=== PATIENT | male | born 1945 | race Asian ===

== ENCOUNTER 2021-09-15 23:08 | Inpatient (IN) | payer MEDICARE, MEDICAID ==
[~2021-09-15] VITALS: Ht 170.2 cm; Wt 60.4 kg
[2021-09-15] MEDS ORDERED: MIDAZOLAM HCL 100 MG in SODIUM CHLORIDE 0.9% 100 ML IV PRN (23:15)
[2021-09-15] MEDS ORDERED: SUCCINYLCHOLINE CHLORIDE 200MG/10ML IV ONE (23:15)
[2021-09-15] MEDS ORDERED: ETOMIDATE 2MG/ML 10ML VIAL IV ONE (23:15)
[2021-09-15] MEDS ORDERED: FENTANYL CITRATE 2,500 MCG in SODIUM CHLORIDE 0.9% 200 ML IV PRN (23:30)
[2021-09-15 23:47] LABS: BG BASE EXCESS -3.4 mmol/L (-2.0-2.0); BG CARBOXYHEMOGLOBIN 0.6 % (0.5-1.5); BG DEOXYHEMOGLOBIN 9.8 % (0.0-5.0); BG FRACTION INSPIRED OXYGEN 50; BG HCO3 ACT 20.5 mmol/L (22.0-26.0); BG METHEMOGLOBIN 0.3 % (0.0-1.5); BG OXYGEN SATURATION 90.1 % (92.0-98.5); BG OXYHEMOGLOBIN 89.3 % (94.0-97.0); BG PCO2 33.6 mmHg (35.0-45.0); BG PH 7.404 (7.350-7.450); BG PO2 58.2 mmHg (75.0-100.0); BG SAMPLE SITE LEFT BRACHIAL; BG VENT MODE VENT - AC
[2021-09-16] VITALS (76 sets, daily range): BP systolic 69–128; BP diastolic 40–97
[2021-09-16 00:06] LABS: CHLORIDE 117 mEq/L (98-107)
[2021-09-16 00:10] LABS: BASOPHILS % 0.4 % (0.0-2.0); HEMATOCRIT. 41.5 % (42.0-52.0); HEMOGLOBIN. 13.4 g/dL (14.0-18.0); LYMPHOCYTES % 15.6 % (20.0-50.0); MEAN CORPUSCULAR HEMOGLOBIN 29.3 pg (28.0-32.0); MEAN CORPUSCULAR VOLUME 90.9 fL (80.0-94.0); MEAN PLATELET VOLUME 8.2 fl (7.4-10.4); MONOCYTES % 4.5 % (2.0-8.0); NEUTROPHILS % 79.5 % (40.0-76.0); PLATELET 252 x1000/uL (130-400); RED BLOOD CELL COUNT 4.57 mill/uL (4.7-6.1); RED CELL DISTRIBUTION WIDTH 18.1 % (11.6-14.6)
[2021-09-16 00:23] LABS: CLARITY URINE CLOUDY (CLEAR); COLOR URINE DARK YELLOW (YELLOW); KETONES URINE NEGATIVE (NEGATIVE); LEUKOCYTE ESTERASE URINE TRACE (NEGATIVE); NITRITE URINE NEGATIVE (NEGATIVE); OCCULT BLOOD URINE 1+ (NEGATIVE); PH URINE 5.5 (4.5-8.0); PROTEIN URINE 2+ (NEGATIVE)
[2021-09-16] MEDS ORDERED: SODIUM CHLORIDE 0.9% 1,000 ML IV ONE (01:00)
[2021-09-16] MEDS ORDERED: CEFTRIAXONE 1 G PREMIX 50 ML IV ONE (01:30)
[2021-09-16] MEDS ORDERED: NOREPINEPHRINE 8MG/250ML PMX 250 ML IV ONE (01:45)
[2021-09-16] MEDS ORDERED: IPRATROPIUM/ALBUTEROL 0.5-3(2.5)MG/3ML NEB NEB PRN (02:15)
[2021-09-16] MEDS ORDERED: POTASSIUM CHLORIDE INJ 40 MEQ in DEXT 5% WATER 250 ML IV NR (02:15)
[2021-09-16] MEDS ORDERED: BLOOD SUGAR DIAGNOSTIC STRIP TEST SCH (02:15)
[2021-09-16] MEDS ORDERED: DEXTROSE 50% WATER 50ML SYRINGE IV PRN (02:15)
[2021-09-16] MEDS ORDERED: DIPHENHYDRAMINE 50MG/ML VIAL IV PRN (02:15)
[2021-09-16] MEDS ORDERED: ONDANSETRON HCL 4MG/2ML INJ IV PRN (02:15)
[2021-09-16] MEDS: DEXT 5%/0.45% NACL 1000ML 1,000 ML IV SCH ×2 (03:41→18:33)
[2021-09-16] MEDS: BLOOD SUGAR DIAGNOSTIC STRIP TEST SCH ×3 (06:28→18:21)
[2021-09-16] MEDS: INSULIN LISPRO 100 UNITS/ML SUBCUT SCH ×3 (06:30→18:33)
[2021-09-16] MEDS ORDERED: INSULIN LISPRO 100 UNITS/ML SUBCUT SCH (07:00)
[2021-09-16] MEDS: FENTANYL CITRATE/PF 2,500 MCG in SODIUM CHLORIDE 0.9% 200 ML IV PRN (07:34)
[2021-09-16 08:10] LABS: *AMPHETAMINES SCREEN URINE NEGATIVE (NEGATIVE); *BARBITURATES SCREEN URINE NEGATIVE (NEGATIVE); *BENZODIAZEPINES SCREEN URINE PRESUMTIVE POSITIVE (NEGATIVE); *COCAINE SCREEN URINE NEGATIVE (NEGATIVE)
[2021-09-16 08:11] LABS: METHADONE URINE SCREEN NEGATIVE (NEGATIVE); OPIATES URINE SCREEN NEGATIVE (NEGATIVE); PHENCYCLIDINE URINE SCREEN NEGATIVE (NEGATIVE)
[2021-09-16 08:12] LABS: CANNABINOID URINE SCREEN NEGATIVE (NEGATIVE)
[2021-09-16 08:57] LABS: BG CARBOXYHEMOGLOBIN 0.3 % (0.5-1.5); BG DEOXYHEMOGLOBIN 4.9 % (0.0-5.0); BG FRACTION INSPIRED OXYGEN 70; BG HCO3 ACT 23.2 mmol/L (22.0-26.0); BG METHEMOGLOBIN 0.2 % (0.0-1.5); BG OXYGEN SATURATION 95.1 % (92.0-98.5); BG OXYHEMOGLOBIN 94.6 % (94.0-97.0); BG PCO2 41.4 mmHg (35.0-45.0); BG PH 7.367 (7.350-7.450); BG PO2 82.6 mmHg (75.0-100.0); BG SAMPLE SITE RIGHT BRACHIAL; BG TOTAL HEMOGLOBIN 12.5 g/dL (12.0-18.0); BG TOTAL RESPIRATORY RATE 14 b/min; BG VENT MODE VENT - AC
[2021-09-16] MEDS: PANTOPRAZOLE SODIUM 40 MG/VIAL IV SCH (09:30)
[2021-09-16] MEDS ORDERED: MIDAZOLAM HCL 100 MG in SODIUM CHLORIDE 0.9% 80 ML IV PRN (09:30)
[2021-09-16] MEDS: ENOXAPARIN 30MG/0.3ML SYR SUBCUT SCH (09:30)
[2021-09-16] MEDS ORDERED: ETOMIDATE 2MG/ML 10ML VIAL IV ONE (09:50)
[2021-09-16] MEDS ORDERED: SUCCINYLCHOLINE CHLORIDE 200MG/10ML IV ONE (09:50)
[2021-09-16] MEDS ORDERED: IPRATROPIUM/ALBUTEROL 0.5-3(2.5)MG/3ML NEB HHN PRN (10:45)
[2021-09-16] MEDS: PIPERACILLIN/TAZOBACTAM 3.375 G in DEXTROSE 5% WATER 50 ML IV SCH ×2 (12:38→22:15)
[2021-09-16] MEDS: NOREPINEPHRINE 8 MG in DEXT 5% WATER 242 ML IV PRN ×2 (12:39→22:25)
[2021-09-16] MEDS: IPRATROPIUM/ALBUTEROL 0.5-3(2.5)MG/3ML NEB HHN SCH ×2 (14:11→20:49)
[2021-09-16] MEDS ORDERED: METO-396 PO (18:04)
[2021-09-16] MEDS ORDERED: ICOS0.5C MT (18:04)
[2021-09-16] MEDS ORDERED: AMIO100T4 MT (18:04)
[2021-09-16] MEDS ORDERED: VITA1CAP MT (18:04)
[2021-09-17] VITALS (97 sets, daily range): BP systolic 56–166; BP diastolic 34–113
[2021-09-17] MEDS ORDERED: SODIUM CHLORIDE 0.9% 1,000 ML IV ONE (01:30)
[2021-09-17] MEDS: INSULIN LISPRO 100 UNITS/ML SUBCUT SCH ×4 (01:40→17:46)
[2021-09-17] MEDS: PHENYLEPHRINE 100 MG in DEXT 5% WATER 240 ML IV PRN ×2 (02:05→19:56)
[2021-09-17] MEDS: IPRATROPIUM/ALBUTEROL 0.5-3(2.5)MG/3ML NEB HHN SCH ×4 (02:35→21:30)
[2021-09-17] MEDS ORDERED: LORAZEPAM 2MG/ML CPJ IV PRN (04:45)
[2021-09-17] MEDS: DEXT 5%/0.45% NACL 1000ML 1,000 ML IV SCH (05:52)
[2021-09-17] MEDS ORDERED: LEVETIRACETAM 500 MG in SODIUM CHLORIDE 0.9% 100 ML IV SCH (06:00)
[2021-09-17] MEDS: BLOOD SUGAR DIAGNOSTIC STRIP TEST SCH ×4 (06:01→17:47)
[2021-09-17] MEDS: PIPERACILLIN/TAZOBACTAM 3.375 G in DEXTROSE 5% WATER 50 ML IV SCH ×3 (06:01→22:46)
[2021-09-17] MEDS: LEVETIRACETAM 500MG PREMIX 100 ML IV SCH ×2 (06:04→17:55)
[2021-09-17] MEDS: ENOXAPARIN 30MG/0.3ML SYR SUBCUT SCH (08:32)
[2021-09-17] MEDS: PANTOPRAZOLE SODIUM 40 MG/VIAL IV SCH (08:32)
[2021-09-17 09:35] LABS: BG BASE EXCESS -4.4 mmol/L (-2.0-2.0); BG CARBOXYHEMOGLOBIN 0.3 % (0.5-1.5); BG DEOXYHEMOGLOBIN 1.2 % (0.0-5.0); BG FRACTION INSPIRED OXYGEN 60; BG HCO3 ACT 21.2 mmol/L (22.0-26.0); BG METHEMOGLOBIN 0.2 % (0.0-1.5); BG OXYGEN SATURATION 98.8 % (92.0-98.5); BG OXYHEMOGLOBIN 98.3 % (94.0-97.0); BG PH 7.331 (7.350-7.450); BG PO2 152.1 mmHg (75.0-100.0); BG SAMPLE SITE RIGHT RADIAL; BG TOTAL HEMOGLOBIN 11.2 g/dL (12.0-18.0); BG VENT MODE VENT - AC
[2021-09-17] MEDS ORDERED: FAMO40TA70 MT (12:14)
[2021-09-17] MEDS ORDERED: AMI2 MT (12:15)
[2021-09-17] MEDS ORDERED: PRAV20TA57 PO (12:16)
[2021-09-17] MEDS ORDERED: CLOP-31 PO (12:16)
[2021-09-17] MEDS ORDERED: AMLO-372 MT (12:16)
[2021-09-17] MEDS ORDERED: BISA-81 PO (12:17)
[2021-09-17] MEDS: FENTANYL CITRATE/PF 2,500 MCG in SODIUM CHLORIDE 0.9% 200 ML IV PRN (12:55)
[2021-09-17] MEDS: AMIODARONE HCL 200 MG TABLET NG SCH ×2 (17:55→22:46)
[2021-09-17 18:47] LABS: BASOPHILS % 0.2 % (0.0-2.0); EOSINOPHILS % 0.5 % (0.0-5.0); HEMATOCRIT. 34.8 % (42.0-52.0); HEMOGLOBIN. 11.1 g/dL (14.0-18.0); MEAN CORPUSCULAR HEMOGLOBIN 28.5 pg (28.0-32.0); MEAN CORPUSCULAR VOLUME 89.8 fL (80.0-94.0); MEAN PLATELET VOLUME 8.6 fl (7.4-10.4); MONOCYTES % 6.6 % (2.0-8.0); NEUTROPHILS % 73.7 % (40.0-76.0); PLATELET 194 x1000/uL (130-400); RED BLOOD CELL COUNT 3.87 mill/uL (4.7-6.1); RED CELL DISTRIBUTION WIDTH 18.4 % (11.6-14.6)
[2021-09-17] MEDS: FAMOTIDINE 20MG/2ML VIAL IV SCH (22:46)
[2021-09-18] VITALS (92 sets, daily range): BP systolic 55–168; BP diastolic 30–85
[2021-09-18] MEDS: BLOOD SUGAR DIAGNOSTIC STRIP TEST SCH ×4 (00:45→17:30)
[2021-09-18] MEDS: INSULIN LISPRO 100 UNITS/ML SUBCUT SCH ×4 (00:55→17:31)
[2021-09-18] MEDS: IPRATROPIUM/ALBUTEROL 0.5-3(2.5)MG/3ML NEB HHN SCH ×3 (02:24→20:29)
[2021-09-18 04:50] LABS: BASOPHILS % 0.2 % (0.0-2.0); EOSINOPHILS % 0.9 % (0.0-5.0); HEMATOCRIT. 33.5 % (42.0-52.0); HEMOGLOBIN. 10.6 g/dL (14.0-18.0); LYMPHOCYTES % 11.9 % (20.0-50.0); MEAN CORPUSCULAR HEMOGLOBIN 28.3 pg (28.0-32.0); MEAN CORPUSCULAR VOLUME 89.8 fL (80.0-94.0); MEAN PLATELET VOLUME 9.2 fl (7.4-10.4); MONOCYTES % 5.4 % (2.0-8.0); NEUTROPHILS % 81.6 % (40.0-76.0); PLATELET 194 x1000/uL (130-400); RED BLOOD CELL COUNT 3.73 mill/uL (4.7-6.1); RED CELL DISTRIBUTION WIDTH 17.7 % (11.6-14.6)
[2021-09-18 04:59] LABS: INR 0.9; PROTHROMBIN TIME 10.2 sec (9.6-11.0)
[2021-09-18 05:07] LABS: CHLORIDE 115 mEq/L (98-107)
[2021-09-18] MEDS: LEVETIRACETAM 500MG PREMIX 100 ML IV SCH ×2 (05:39→17:30)
[2021-09-18] MEDS: PIPERACILLIN/TAZOBACTAM 3.375 G in DEXTROSE 5% WATER 50 ML IV SCH ×3 (05:54→21:59)
[2021-09-18] MEDS ORDERED: LIDOCAINE HCL 1% 10 MG/ML 10ML VIAL ONE (08:23)
[2021-09-18] MEDS: AMIODARONE HCL 200 MG TABLET NG SCH ×2 (09:02→21:58)
[2021-09-18] MEDS: ENOXAPARIN 30MG/0.3ML SYR SUBCUT SCH (09:02)
[2021-09-18 09:35] LABS: BG BASE EXCESS -1.6 mmol/L (-2.0-2.0); BG CARBOXYHEMOGLOBIN 0.3 % (0.5-1.5); BG DEOXYHEMOGLOBIN 1.3 % (0.0-5.0); BG FRACTION INSPIRED OXYGEN 50; BG METHEMOGLOBIN 0.2 % (0.0-1.5); BG OXYGEN SATURATION 98.7 % (92.0-98.5); BG OXYHEMOGLOBIN 98.2 % (94.0-97.0); BG PCO2 43.8 mmHg (35.0-45.0); BG PH 7.356 (7.350-7.450); BG PO2 163.3 mmHg (75.0-100.0); BG SAMPLE SITE RIGHT RADIAL; BG TOTAL HEMOGLOBIN 11.2 g/dL (12.0-18.0); BG VENT MODE VENT - AC
[2021-09-18] MEDS: PHENYLEPHRINE 100 MG in DEXT 5% WATER 240 ML IV PRN (13:29)
[2021-09-18] MEDS: FENTANYL CITRATE/PF 2,500 MCG in SODIUM CHLORIDE 0.9% 200 ML IV PRN (16:14)
[2021-09-18] MEDS: FAMOTIDINE 20MG/2ML VIAL IV SCH (21:58)
[2021-09-19] VITALS (90 sets, daily range): BP systolic 64–153; BP diastolic 40–108
[2021-09-19] MEDS: ACETYLCYSTEINE 100MG/ML 10% VIAL 4ML INH SCH ×2 (00:30→15:39)
[2021-09-19] MEDS: BLOOD SUGAR DIAGNOSTIC STRIP TEST SCH ×5 (00:58→23:53)
[2021-09-19] MEDS: INSULIN LISPRO 100 UNITS/ML SUBCUT SCH ×4 (01:02→17:32)
[2021-09-19] MEDS: IPRATROPIUM/ALBUTEROL 0.5-3(2.5)MG/3ML NEB HHN SCH ×4 (01:24→20:30)
[2021-09-19 04:51] LABS: EOSINOPHILS % 0.7 % (0.0-5.0); HEMATOCRIT. 33.4 % (42.0-52.0); HEMOGLOBIN. 10.7 g/dL (14.0-18.0); LYMPHOCYTES % 8.3 % (20.0-50.0); MEAN CORPUSCULAR HEMOGLOBIN 28.2 pg (28.0-32.0); MEAN CORPUSCULAR VOLUME 88.4 fL (80.0-94.0); MONOCYTES % 5.4 % (2.0-8.0); NEUTROPHILS % 85.6 % (40.0-76.0); PLATELET 193 x1000/uL (130-400); RED BLOOD CELL COUNT 3.78 mill/uL (4.7-6.1); RED CELL DISTRIBUTION WIDTH 17.4 % (11.6-14.6)
[2021-09-19 04:58] LABS: CHLORIDE 112 mEq/L (98-107)
[2021-09-19] MEDS: PIPERACILLIN/TAZOBACTAM 3.375 G in DEXTROSE 5% WATER 50 ML IV SCH ×3 (05:31→21:12)
[2021-09-19] MEDS: LEVETIRACETAM 500MG PREMIX 100 ML IV SCH ×2 (05:32→17:31)
[2021-09-19] MEDS: AMIODARONE HCL 200 MG TABLET NG SCH ×2 (08:22→21:12)
[2021-09-19] MEDS: ENOXAPARIN 30MG/0.3ML SYR SUBCUT SCH (08:22)
[2021-09-19 09:54] LABS: BG BASE EXCESS -2.5 mmol/L (-2.0-2.0); BG CARBOXYHEMOGLOBIN 0.2 % (0.5-1.5); BG DEOXYHEMOGLOBIN 3.7 % (0.0-5.0); BG FRACTION INSPIRED OXYGEN 40; BG HCO3 ACT 22.9 mmol/L (22.0-26.0); BG OXYGEN SATURATION 96.3 % (92.0-98.5); BG OXYHEMOGLOBIN 96.1 % (94.0-97.0); BG PCO2 41.5 mmHg (35.0-45.0); BG PH 7.359 (7.350-7.450); BG PO2 80.4 mmHg (75.0-100.0); BG SAMPLE SITE RIGHT RADIAL; BG TOTAL HEMOGLOBIN 11.2 g/dL (12.0-18.0); BG VENT MODE VENT - SIMV
[2021-09-19] MEDS: PHENYLEPHRINE 100 MG in DEXT 5% WATER 240 ML IV PRN ×2 (12:36→13:42)
[2021-09-19] MEDS ORDERED: POTASSIUM CHLORIDE 20MEQ/PACKET NG NR (12:45)
[2021-09-19 12:53] LABS: BG BASE EXCESS 1.5 mmol/L (-2.0-2.0); BG CARBOXYHEMOGLOBIN 0.3 % (0.5-1.5); BG DEOXYHEMOGLOBIN 2.6 % (0.0-5.0); BG FRACTION INSPIRED OXYGEN 40; BG HCO3 ACT 25.5 mmol/L (22.0-26.0); BG METHEMOGLOBIN 0.3 % (0.0-1.5); BG OXYGEN SATURATION 97.4 % (92.0-98.5); BG OXYHEMOGLOBIN 96.8 % (94.0-97.0); BG PCO2 38.1 mmHg (35.0-45.0); BG PH 7.444 (7.350-7.450); BG PO2 99.4 mmHg (75.0-100.0); BG TOTAL HEMOGLOBIN 10.7 g/dL (12.0-18.0); BG VENT MODE VENT - CPAP
[2021-09-19] MEDS: FAMOTIDINE 20MG/2ML VIAL IV SCH (21:12)
[2021-09-20] VITALS (73 sets, daily range): BP systolic 68–158; BP diastolic 42–98
[2021-09-20] MEDS: INSULIN LISPRO 100 UNITS/ML SUBCUT SCH ×4 (00:01→17:24)
[2021-09-20] MEDS: IPRATROPIUM/ALBUTEROL 0.5-3(2.5)MG/3ML NEB HHN SCH ×6 (00:30→20:48)
[2021-09-20] MEDS: ACETYLCYSTEINE 100MG/ML 10% VIAL 4ML INH SCH ×3 (00:30→15:51)
[2021-09-20] MEDS: LEVETIRACETAM 500MG PREMIX 100 ML IV SCH ×2 (05:21→17:14)
[2021-09-20] MEDS: BLOOD SUGAR DIAGNOSTIC STRIP TEST SCH ×3 (05:21→17:21)
[2021-09-20] MEDS: PIPERACILLIN/TAZOBACTAM 3.375 G in DEXTROSE 5% WATER 50 ML IV SCH ×3 (05:21→20:45)
[2021-09-20 08:16] LABS: BG BASE EXCESS 3.4 mmol/L (-2.0-2.0); BG CARBOXYHEMOGLOBIN 0.3 % (0.5-1.5); BG DEOXYHEMOGLOBIN 2.3 % (0.0-5.0); BG OXYGEN SATURATION 97.7 % (92.0-98.5); BG OXYHEMOGLOBIN 97.4 % (94.0-97.0); BG PCO2 42.3 mmHg (35.0-45.0); BG PH 7.438 (7.350-7.450); BG PO2 107.5 mmHg (75.0-100.0); BG SAMPLE SITE RIGHT RADIAL; BG TOTAL HEMOGLOBIN 9.8 g/dL (12.0-18.0); BG VENT MODE VENT - SIMV
[2021-09-20 10:03] LABS: BG BASE EXCESS 5.9 mmol/L (-2.0-2.0); BG CARBOXYHEMOGLOBIN 0.3 % (0.5-1.5); BG DEOXYHEMOGLOBIN 2.3 % (0.0-5.0); BG HCO3 ACT 30.6 mmol/L (22.0-26.0); BG METHEMOGLOBIN 0.1 % (0.0-1.5); BG OXYGEN SATURATION 97.7 % (92.0-98.5); BG OXYHEMOGLOBIN 97.3 % (94.0-97.0); BG PCO2 45.1 mmHg (35.0-45.0); BG SAMPLE SITE RIGHT RADIAL; BG TOTAL HEMOGLOBIN 10.7 g/dL (12.0-18.0); BG VENT MODE VENT - CPAP
[2021-09-20] MEDS: ENOXAPARIN 30MG/0.3ML SYR SUBCUT SCH (10:19)
[2021-09-20] MEDS: AMIODARONE HCL 200 MG TABLET NG SCH ×2 (10:20→20:46)
[2021-09-20] MEDS ORDERED: AMIODARONE HCL 150 MG in DEXT 5% WATER 100 ML IV NR (17:00)
[2021-09-20] MEDS: AMIODARONE HCL 900 MG in DEXT 5% WATER 482 ML IV PRN (17:55)
[2021-09-20] MEDS: FAMOTIDINE 20MG/2ML VIAL IV SCH (20:45)
[2021-09-21] VITALS (26 sets, daily range): BP systolic 101–173; BP diastolic 52–102
[2021-09-21] MEDS: ACETYLCYSTEINE 100MG/ML 10% VIAL 4ML INH SCH ×3 (00:19→20:55)
[2021-09-21] MEDS: IPRATROPIUM/ALBUTEROL 0.5-3(2.5)MG/3ML NEB HHN SCH ×6 (00:19→20:55)
[2021-09-21 05:24] LABS: HEMATOCRIT. 31.1 % (42.0-52.0); HEMOGLOBIN. 10.3 g/dL (14.0-18.0); MEAN CORPUSCULAR HEMOGLOBIN 28.8 pg (28.0-32.0); MEAN CORPUSCULAR VOLUME 87.4 fL (80.0-94.0); MEAN PLATELET VOLUME 9.6 fl (7.4-10.4); PLATELET 190 x1000/uL (130-400); RED BLOOD CELL COUNT 3.56 mill/uL (4.7-6.1); RED CELL DISTRIBUTION WIDTH 17.1 % (11.6-14.6)
[2021-09-21 05:31] LABS: CHLORIDE 106 mEq/L (98-107)
[2021-09-21] MEDS: BLOOD SUGAR DIAGNOSTIC STRIP TEST SCH ×5 (06:00→23:29)
[2021-09-21] MEDS: INSULIN LISPRO 100 UNITS/ML SUBCUT SCH ×5 (06:00→23:29)
[2021-09-21] MEDS: PIPERACILLIN/TAZOBACTAM 3.375 G in DEXTROSE 5% WATER 50 ML IV SCH (06:28)
[2021-09-21] MEDS: LEVETIRACETAM 500MG PREMIX 100 ML IV SCH ×2 (06:28→18:15)
[2021-09-21] MEDS: ENOXAPARIN 30MG/0.3ML SYR SUBCUT SCH (11:04)
[2021-09-21] MEDS: AMIODARONE HCL 200 MG TABLET NG SCH ×2 (11:04→22:16)
[2021-09-21] MEDS ORDERED: POTASSIUM CHLORIDE INJ 40 MEQ in DEXT 5% WATER 250 ML IV NR (12:00)
[2021-09-21 13:16] LABS: PLATELET ESTIMATE NORMAL
[2021-09-21] MEDS: FAMOTIDINE 20MG/2ML VIAL IV SCH (22:16)
[2021-09-22] VITALS (52 sets, daily range): BP systolic 123–164; BP diastolic 59–99
[2021-09-22] MEDS: IPRATROPIUM/ALBUTEROL 0.5-3(2.5)MG/3ML NEB HHN SCH ×6 (01:02→20:17)
[2021-09-22] MEDS: AMIODARONE HCL 900 MG in DEXT 5% WATER 482 ML IV PRN (02:09)
[2021-09-22] MEDS: LEVETIRACETAM 500MG PREMIX 100 ML IV SCH ×2 (05:10→18:18)
[2021-09-22] MEDS: BLOOD SUGAR DIAGNOSTIC STRIP TEST SCH ×4 (05:11→23:51)
[2021-09-22 05:53] LABS: HEMATOCRIT. 29.3 % (42.0-52.0); HEMOGLOBIN. 9.4 g/dL (14.0-18.0); MEAN CORPUSCULAR HEMOGLOBIN 28.3 pg (28.0-32.0); MEAN CORPUSCULAR VOLUME 88.3 fL (80.0-94.0); MEAN PLATELET VOLUME 10.6 fl (7.4-10.4); PLATELET 206 x1000/uL (130-400); RED BLOOD CELL COUNT 3.31 mill/uL (4.7-6.1); RED CELL DISTRIBUTION WIDTH 16.4 % (11.6-14.6)
[2021-09-22] MEDS: INSULIN LISPRO 100 UNITS/ML SUBCUT SCH ×4 (06:00→23:56)
[2021-09-22 06:04] LABS: CHLORIDE 104 mEq/L (98-107)
[2021-09-22] MEDS: ACETYLCYSTEINE 100MG/ML 10% VIAL 4ML INH SCH ×2 (08:26→15:57)
[2021-09-22] MEDS: AMIODARONE HCL 200 MG TABLET NG SCH ×2 (08:35→21:40)
[2021-09-22] MEDS: ENOXAPARIN 30MG/0.3ML SYR SUBCUT SCH (08:36)
[2021-09-22 09:22] LABS: BG BASE EXCESS 3.2 mmol/L (-2.0-2.0); BG CARBOXYHEMOGLOBIN 0.3 % (0.5-1.5); BG DEOXYHEMOGLOBIN 5.8 % (0.0-5.0); BG HCO3 ACT 26.3 mmol/L (22.0-26.0); BG METHEMOGLOBIN 0.3 % (0.0-1.5); BG OXYGEN SATURATION 94.2 % (92.0-98.5); BG OXYHEMOGLOBIN 93.6 % (94.0-97.0); BG PCO2 34.6 mmHg (35.0-45.0); BG PH 7.499 (7.350-7.450); BG PO2 68.8 mmHg (75.0-100.0); BG SAMPLE SITE RIGHT RADIAL; BG TOTAL HEMOGLOBIN 10.8 g/dL (12.0-18.0); BG VENT MODE NASAL CANNULA
[2021-09-22 10:41] LABS: PLATELET ESTIMATE NORMAL
[2021-09-22] MEDS ORDERED: METOPROLOL TARTRATE 50MG TABLET PO SCH (13:00)
[2021-09-22] MEDS: FAMOTIDINE 20MG/2ML VIAL IV SCH (21:39)
[2021-09-22] MEDS: METOPROLOL TARTRATE 50MG TABLET PO SCH (21:41)
[2021-09-23] VITALS (13 sets, daily range): BP systolic 93–157; BP diastolic 54–93
[2021-09-23] MEDS: ACETYLCYSTEINE 100MG/ML 10% VIAL 4ML INH SCH ×3 (00:10→16:41)
[2021-09-23] MEDS: IPRATROPIUM/ALBUTEROL 0.5-3(2.5)MG/3ML NEB HHN SCH ×6 (00:10→20:38)
[2021-09-23] MEDS: BLOOD SUGAR DIAGNOSTIC STRIP TEST SCH ×3 (06:00→17:13)
[2021-09-23] MEDS: INSULIN LISPRO 100 UNITS/ML SUBCUT SCH ×3 (06:00→17:39)
[2021-09-23] MEDS: LEVETIRACETAM 500MG PREMIX 100 ML IV SCH (06:02)
[2021-09-23] MEDS: AMIODARONE HCL 200 MG TABLET NG SCH ×2 (08:36→21:43)
[2021-09-23] MEDS: METOPROLOL TARTRATE 50MG TABLET PO SCH ×2 (08:37→21:43)
[2021-09-23] MEDS: ENOXAPARIN 30MG/0.3ML SYR SUBCUT SCH (08:38)
[2021-09-23] MEDS ORDERED: POTASSIUM CHLORIDE INJ 40 MEQ in DEXT 5% WATER 250 ML IV SCH (16:00)
[2021-09-23] MEDS: LEVETIRACETAM 500MG/5ML CUP NG SCH (21:42)
[2021-09-23] MEDS: FAMOTIDINE 20MG TABLET NG SCH (21:43)
[2021-09-24] VITALS (15 sets, daily range): BP systolic 113–165; BP diastolic 61–85
[2021-09-24] MEDS: IPRATROPIUM/ALBUTEROL 0.5-3(2.5)MG/3ML NEB HHN SCH ×5 (00:42→20:53)
[2021-09-24] MEDS: ACETYLCYSTEINE 100MG/ML 10% VIAL 4ML INH SCH ×3 (00:42→15:42)
[2021-09-24] MEDS: BLOOD SUGAR DIAGNOSTIC STRIP TEST SCH ×4 (01:52→17:27)
[2021-09-24] MEDS: INSULIN LISPRO 100 UNITS/ML SUBCUT SCH ×4 (05:40→17:27)
[2021-09-24] MEDS: METOPROLOL TARTRATE 50MG TABLET PO SCH ×2 (09:16→20:47)
[2021-09-24] MEDS: LEVETIRACETAM 500MG/5ML CUP NG SCH ×2 (09:16→20:46)
[2021-09-24] MEDS: AMIODARONE HCL 200 MG TABLET NG SCH ×2 (09:16→20:47)
[2021-09-24] MEDS: ENOXAPARIN 30MG/0.3ML SYR SUBCUT SCH (09:16)
[2021-09-24] MEDS: FAMOTIDINE 20MG TABLET NG SCH ×2 (09:16→20:46)
[2021-09-24 09:45] LABS: HEMATOCRIT. 29.8 % (42.0-52.0); HEMOGLOBIN. 9.6 g/dL (14.0-18.0); MEAN CORPUSCULAR HEMOGLOBIN 28.5 pg (28.0-32.0); MEAN PLATELET VOLUME 9.8 fl (7.4-10.4); PLATELET 257 x1000/uL (130-400); RED BLOOD CELL COUNT 3.39 mill/uL (4.7-6.1); RED CELL DISTRIBUTION WIDTH 16.8 % (11.6-14.6)
[2021-09-24 09:54] LABS: CHLORIDE 106 mEq/L (98-107)
[2021-09-24] MEDS ORDERED: ASPIRIN 325MG TABLET PO PRN (21:15)
[2021-09-25] VITALS (15 sets, daily range): BP systolic 113–152; BP diastolic 61–78
[2021-09-25] MEDS: BLOOD SUGAR DIAGNOSTIC STRIP TEST SCH ×4 (00:10→18:44)
[2021-09-25] MEDS: IPRATROPIUM/ALBUTEROL 0.5-3(2.5)MG/3ML NEB HHN SCH ×6 (00:53→22:31)
[2021-09-25] MEDS: INSULIN LISPRO 100 UNITS/ML SUBCUT SCH ×4 (06:00→18:00)
[2021-09-25] MEDS: SODIUM CHLORIDE 0.9% 1,000 ML IV SCH (06:41)
[2021-09-25 07:13] LABS: BASOPHILS % 0.2 % (0.0-2.0); EOSINOPHILS % 0.4 % (0.0-5.0); HEMATOCRIT. 29.7 % (42.0-52.0); HEMOGLOBIN. 9.5 g/dL (14.0-18.0); LYMPHOCYTES % 8.8 % (20.0-50.0); MEAN CORPUSCULAR HEMOGLOBIN 27.9 pg (28.0-32.0); MEAN CORPUSCULAR VOLUME 86.7 fL (80.0-94.0); MEAN PLATELET VOLUME 9.9 fl (7.4-10.4); MONOCYTES % 4.7 % (2.0-8.0); NEUTROPHILS % 85.9 % (40.0-76.0); PLATELET 319 x1000/uL (130-400); RED BLOOD CELL COUNT 3.42 mill/uL (4.7-6.1); RED CELL DISTRIBUTION WIDTH 16.3 % (11.6-14.6)
[2021-09-25 07:22] LABS: CHLORIDE 104 mEq/L (98-107)
[2021-09-25 08:19] LABS: PROTHROMBIN TIME 10.8 sec (9.6-11.0)
[2021-09-25] MEDS: AMIODARONE HCL 200 MG TABLET NG SCH ×2 (08:36→21:31)
[2021-09-25] MEDS: CEFEPIME 1,000 MG in DEXTROSE 5% WATER 50 ML IV SCH ×2 (08:36→16:37)
[2021-09-25] MEDS: LEVETIRACETAM 500MG/5ML CUP NG SCH ×2 (08:36→21:30)
[2021-09-25] MEDS: FAMOTIDINE 20MG TABLET NG SCH ×2 (08:37→21:30)
[2021-09-25] MEDS: METOPROLOL TARTRATE 50MG TABLET PO SCH ×2 (08:37→21:31)
[2021-09-25] MEDS: ENOXAPARIN 30MG/0.3ML SYR SUBCUT SCH (08:37)
[2021-09-25 09:58] LABS: CLARITY URINE CLEAR (CLEAR); COLOR URINE DARK YELLOW (YELLOW); KETONES URINE NEGATIVE (NEGATIVE); LEUKOCYTE ESTERASE URINE 1+ (NEGATIVE); NITRITE URINE NEGATIVE (NEGATIVE); OCCULT BLOOD URINE 2+ (NEGATIVE); PH URINE 6.5 (4.5-8.0); PROTEIN URINE 1+ (NEGATIVE); SPECIFIC GRAVITY URINE 1.021 (1.005-1.030)
[2021-09-25] MEDS ORDERED: KCL 20MEQ/100ML PREMIX 100 ML IV NR (10:30)
[2021-09-25 10:48] LABS: PLATELET ESTIMATE NORMAL
[2021-09-25] MEDS: METRONIDAZOLE 500MG TABLET PO SCH ×2 (15:05→21:31)
[2021-09-25] MEDS: ACETYLCYSTEINE 100MG/ML 10% VIAL 4ML INH SCH (15:39)
[2021-09-26] VITALS (12 sets, daily range): BP systolic 117–159; BP diastolic 60–83
[2021-09-26] MEDS: CEFEPIME 1,000 MG in DEXTROSE 5% WATER 50 ML IV SCH ×3 (00:15→16:59)
[2021-09-26] MEDS: ACETYLCYSTEINE 100MG/ML 10% VIAL 4ML INH SCH ×2 (02:01→07:59)
[2021-09-26] MEDS: IPRATROPIUM/ALBUTEROL 0.5-3(2.5)MG/3ML NEB HHN SCH ×5 (02:02→20:34)
[2021-09-26] MEDS: BLOOD SUGAR DIAGNOSTIC STRIP TEST SCH ×4 (06:00→18:40)
[2021-09-26] MEDS: INSULIN LISPRO 100 UNITS/ML SUBCUT SCH ×4 (06:00→18:00)
[2021-09-26] MEDS: SODIUM CHLORIDE 0.9% 1,000 ML IV SCH (06:15)
[2021-09-26] MEDS: METRONIDAZOLE 500MG TABLET PO SCH ×3 (06:15→21:04)
[2021-09-26] MEDS: LEVETIRACETAM 500MG/5ML CUP NG SCH ×2 (08:32→21:04)
[2021-09-26] MEDS: FAMOTIDINE 20MG TABLET NG SCH ×2 (08:32→21:04)
[2021-09-26] MEDS: METOPROLOL TARTRATE 50MG TABLET PO SCH ×2 (08:32→21:04)
[2021-09-26] MEDS: AMIODARONE HCL 200 MG TABLET NG SCH ×2 (08:32→21:04)
[2021-09-26] MEDS: ENOXAPARIN 30MG/0.3ML SYR SUBCUT SCH (08:33)
[2021-09-26 11:28] LABS: BASOPHILS % 0.3 % (0.0-2.0); EOSINOPHILS % 0.3 % (0.0-5.0); HEMATOCRIT. 27.2 % (42.0-52.0); HEMOGLOBIN. 9.2 g/dL (14.0-18.0); LYMPHOCYTES % 7.3 % (20.0-50.0); MEAN CORPUSCULAR VOLUME 85.9 fL (80.0-94.0); MEAN PLATELET VOLUME 8.8 fl (7.4-10.4); MONOCYTES % 5.9 % (2.0-8.0); NEUTROPHILS % 86.2 % (40.0-76.0); PLATELET 369 x1000/uL (130-400); RED BLOOD CELL COUNT 3.17 mill/uL (4.7-6.1); RED CELL DISTRIBUTION WIDTH 16.4 % (11.6-14.6)
[2021-09-26 11:43] LABS: CHLORIDE 104 mEq/L (98-107)
[2021-09-26 13:17] LABS: TOTAL IRON BINDING CAPACITY 127 ug/dL (250-450)
[2021-09-26 13:37] LABS: FERRITIN 454 ng/mL (22-322)
[2021-09-26 16:08] LABS: VITAMIN B12 SERUM 1414 pg/mL (211-911)
[2021-09-27] VITALS (12 sets, daily range): BP systolic 110–153; BP diastolic 59–81
[2021-09-27] MEDS: ACETYLCYSTEINE 100MG/ML 10% VIAL 4ML INH SCH ×3 (01:26→15:58)
[2021-09-27] MEDS: IPRATROPIUM/ALBUTEROL 0.5-3(2.5)MG/3ML NEB HHN SCH ×5 (01:27→15:58)
[2021-09-27] MEDS: CEFEPIME 1,000 MG in DEXTROSE 5% WATER 50 ML IV SCH ×3 (01:36→18:28)
[2021-09-27] MEDS: INSULIN LISPRO 100 UNITS/ML SUBCUT SCH ×4 (05:57→18:00)
[2021-09-27] MEDS: BLOOD SUGAR DIAGNOSTIC STRIP TEST SCH ×4 (05:57→18:39)
[2021-09-27] MEDS: METRONIDAZOLE 500MG TABLET PO SCH ×2 (05:59→13:07)
[2021-09-27] MEDS: SODIUM CHLORIDE 0.9% 1,000 ML IV SCH (05:59)
[2021-09-27 06:54] LABS: BASOPHILS % 0.5 % (0.0-2.0); EOSINOPHILS % 0.3 % (0.0-5.0); HEMATOCRIT. 27.6 % (42.0-52.0); HEMOGLOBIN. 9.1 g/dL (14.0-18.0); LYMPHOCYTES % 10.7 % (20.0-50.0); MEAN CORPUSCULAR HEMOGLOBIN 28.8 pg (28.0-32.0); MEAN CORPUSCULAR VOLUME 86.9 fL (80.0-94.0); NEUTROPHILS % 81.5 % (40.0-76.0); PLATELET 401 x1000/uL (130-400); RED BLOOD CELL COUNT 3.18 mill/uL (4.7-6.1)
[2021-09-27 07:05] LABS: CHLORIDE 103 mEq/L (98-107)
[2021-09-27] MEDS: METOPROLOL TARTRATE 50MG TABLET PO SCH (10:07)
[2021-09-27] MEDS: FAMOTIDINE 20MG TABLET NG SCH (10:07)
[2021-09-27] MEDS: ENOXAPARIN 30MG/0.3ML SYR SUBCUT SCH (10:08)
[2021-09-27] MEDS: AMIODARONE HCL 200 MG TABLET NG SCH (10:08)
[2021-09-27] MEDS: LEVETIRACETAM 500MG/5ML CUP NG SCH (10:08)
[2021-09-27] MEDS ORDERED: KCL 20MEQ/100ML PREMIX 100 ML IV NR (12:30)
== END 2021-09-27 22:37 | DRG 870 ==
LOC: ER 23:08 → MICUSO 09-16 00:54 → ENRESERV 09-16 03:23 → 3WST 09-22 17:01
PROVIDERS: ADMIT Internal Medicine; ATTEND Internal Medicine
PROC: 5A1955Z Respiratory Ventilation, Greater than 96 Consecutive Hours (ICD-10-PCS; principal; 2021-09-15)
PROC: 0BH17EZ Insertion of Endotracheal Airway into Trachea, Via Natural or Artificial Opening (ICD-10-PCS; 2021-09-15)
PROC: 02HV33Z Insertion of Infusion Device into Superior Vena Cava, Percutaneous Approach (ICD-10-PCS; 2021-09-16)
PROC: 02HV33Z Insertion of Infusion Device into Superior Vena Cava, Percutaneous Approach (ICD-10-PCS; 2021-09-18)
PROC: B548ZZA Ultrasonography of Superior Vena Cava, Guidance (ICD-10-PCS; 2021-09-18)
PROC: 4A10X4Z Monitoring of Central Nervous Electrical Activity, External Approach (ICD-10-PCS; 2021-09-20)
DX: A41.9 Sepsis, unspecified organism (principal); J96.01 Acute respiratory failure with hypoxia; R65.21 Severe sepsis with septic shock; J69.0 Pneumonitis due to inhalation of food and vomit; G93.41 Metabolic encephalopathy; N17.9 Acute kidney failure, unspecified; E87.0 Hyperosmolality and hypernatremia; I48.20 Chronic atrial fibrillation, unspecified; E46 Unspecified protein-calorie malnutrition; E87.5 Hyperkalemia; I48.0 Paroxysmal atrial fibrillation; I71.4 Abdominal aortic aneurysm, without rupture; L85.3 Xerosis cutis; S91.001A Unspecified open wound, right ankle, initial encounter; S91.301A Unspecified open wound, right foot, initial encounter; S91.002A Unspecified open wound, left ankle, initial encounter; S91.302A Unspecified open wound, left foot, initial encounter; X58.XXXA Exposure to other specified factors, initial encounter; G40.909 Epilepsy, unspecified, not intractable, without status epilepticus; L89.156 Pressure-induced deep tissue damage of sacral region; L89.896 Pressure-induced deep tissue damage of other site; D64.9 Anemia, unspecified; I12.9 Hypertensive chronic kidney disease with stage 1 through stage 4 chronic kidney disease, or unspecified chronic kidney disease; Z20.822 Contact with and (suspected) exposure to COVID-19; N18.9 Chronic kidney disease, unspecified; L89.026 Pressure-induced deep tissue damage of left elbow; R13.10 Dysphagia, unspecified; G20 Parkinson's disease; I25.10 Atherosclerotic heart disease of native coronary artery without angina pectoris; Z88.6 Allergy status to analgesic agent; Z88.5 Allergy status to narcotic agent; Z88.8 Allergy status to other drugs, medicaments and biological substances; Z79.899 Other long term (current) drug therapy; Y93.89 Activity, other specified; Y92.89 Other specified places as the place of occurrence of the external cause; Y99.8 Other external cause status; Z78.1 Physical restraint status; Z68.20 Body mass index [BMI] 20.0-20.9, adult; R62.7 Adult failure to thrive
CPT/HCPCS: 36415; 36600; 71045; 71250; 76937; 80048; 80053; 80305; 81003; 82040; 82375; 82607; 82728; 82805; 82962; 83540; 83550; 83880; 84134; 84484; 85025; 85044; 87070; 87077; 87186; 87426; 92610; 93005; 93923; 94002; 94003; 94640; 94667; 95816; 97162; 97164; 97166; 99291; C1725; C1769; C9113; J0282; J0330; J0692; J0696; J1200; J1650; J1815; J1953; J2060; J2370; J2543; J3010; J3480; J3490; J7030; J7040; J7050; J7060; J7608